=== PATIENT | female | born 1945 | race Hispanic/Latino ===

== ENCOUNTER 2019-08-23 10:01 | Emergency (ER) | payer MEDICARE ==
[~2019-08-23] VITALS: Ht 154.9 cm; Wt 66.7 kg
[~2019-08-23 10:01] MED LIST: AMLODIPINE BESY10 MG PO; ASPIR-TRIN325 MG PO; ASPIRIN EC81 MG PO; CARVEDILOL12.5 MG PO; CARVEDILOL25 MG PO; FUROSEMIDE40 MG PO; GLIPIZIDE5 MG PO; IPRATROPIU0.2 MG/1 M INH; K-TAB ER20 MEQ PO; LIPITOR10 MG PO; LISINOPRIL20 MG PO; METFORMIN HCL1000 MG PO; METFORMIN HCL500 M1 PO; METFORMIN HCL500 MG PO; TORSEMIDE5 MG PO; ZESTRIL10 MG PO
[2019-08-23] MEDS ORDERED: ZESTRIL5 MG PO (10:32)
[2019-08-23] MEDS ORDERED: LOPRESSOR HCT1 EAC1 PO (10:35)
[2019-08-23] MEDS ORDERED: GLIPIZIDE5 MG PO (10:36)
[2019-08-23] MEDS ORDERED: GLUCOPHAGE1000 MG PO (11:49)
== END 2019-08-23 12:05 | disposition home or self-care (01) ==
LOC: ED 10:01
DX: E11.9 Type 2 diabetes mellitus without complications (principal); I11.0 Hypertensive heart disease with heart failure; I50.9 Heart failure, unspecified; Z76.0 Encounter for issue of repeat prescription; Z85.43 Personal history of malignant neoplasm of ovary; Z87.891 Personal history of nicotine dependence; Z79.82 Long term (current) use of aspirin; Z79.84 Long term (current) use of oral hypoglycemic drugs; Z79.899 Other long term (current) drug therapy
CPT/HCPCS: 99281